=== PATIENT | male | born 1985 | race Hispanic/Latino ===

== ENCOUNTER → 2018-05-24 14:44 | Outpatient (CLI) | payer OTHER, SELFPAY ==
--- NOTE | 2018-05-24 | DI.MRI.S_ITS ---
PROCEDURE: MR ELBOW RT WO CON INDICATIONS: PAIN IN RIGHT ELBOW TECHNIQUE: Noncontrast coronal proton density fast spin echo and T2 fast spin echo with fat saturation, axial and sagittal T1 spin echo and T2 fast spin echo with fat saturation through the elbow. COMPARISON: None. FINDINGS: Image quality: Suboptimal related to extensive motion artifact Lateral structures: The lateral ulnar collateral ligament and radial collateral ligament both appear intact. The overlying common extensor tendon also appears normal. Medial structures: The ulnar collateral ligament appears intact. The overlying common flexor tendon appears normal. The ulnar nerve appears normal in size and signal within the cubital tunnel. Anterior structures: The biceps and brachialis tendons both appear intact as they insert onto the proximal radius and ulna, respectively. No bicipitoradial bursal fluid. The median and radial neurovascular bundles appear normal; no focal muscle atrophy to suggest nerve impingement. Posterior structures: The conjoint triceps tendon from the long and lateral heads appears intact. The medial head of the triceps tendon also appears normal, with direct muscle insertion onto the olecranon. No olecranon bursal fluid. Bone and cartilage: There is no acute fracture, dislocation, or suspicious osseous lesion. There are mild degenerative changes identified along the periphery of the ulnohumeral compartment with reactive marrow changes evident. There is an elbow joint effusion. No intra-articular joint bodies are appreciated. IMPRESSION: 1. Suboptimal MRI related to motion artifact. 2. Mild degenerative changes of the elbow. 3. Elbow joint effusion. 4. No ligamentous or tendinous injury of the elbow is evident. Dictated by: Cirilo Nicole M.D. on 05/24/2018 at 16:11 Approved by: Cirilo Nicole M.D. on 05/24/2018 at 16:16
== END ==
PROVIDERS: Visit Provider Family Medicine
DX: M19.021 Primary osteoarthritis, right elbow (principal); M25.421 Effusion, right elbow; M25.521 Pain in right elbow
CPT/HCPCS: 73221